=== PATIENT | male | born 1965 | race African-American/Black ===

== ENCOUNTER 2016-12-22 05:28 | Emergency (ER) | payer SELFPAY ==
[~2016-12-22] VITALS: Ht 177.8 cm; Wt 105.6 kg
[2016-12-22] MEDS ORDERED: PREDNISONE20 MG PO (06:39)
[2016-12-22] MEDS ORDERED: ZITHROMAX Z-PA250 MG PO (06:39)
[2016-12-22 06:51] VITALS: BP 126/76
== END 2016-12-22 06:51 | disposition home or self-care (01) ==
LOC: EME 05:28
DX: J40 Bronchitis, not specified as acute or chronic (principal); J06.9 Acute upper respiratory infection, unspecified
CPT/HCPCS: 71020; 99281; 99283

== ENCOUNTER 2017-10-30 08:54 | Emergency (ER) | payer OTHER ==
[~2017-10-30] VITALS: Ht 177.8 cm; Wt 108.1 kg
[~2017-10-30 08:54] MED LIST: PREDNISONE20 MG PO; ZITHROMAX Z-PA250 MG PO
[2017-10-30 09:12] VITALS: BP 137/81
[2017-10-30] MEDS ORDERED: PREDNISONE20 MG PO (09:15)
== END 2017-10-30 09:30 | disposition home or self-care (01) ==
LOC: EME 08:54
DX: L30.9 Dermatitis, unspecified (principal)
CPT/HCPCS: 99281; 99284